=== PATIENT | female | born 2000 | race Caucasian/White ===

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

== ENCOUNTER 2023-06-27 09:29 | Outpatient (CLI) | payer MEDICAID | END 2023-06-27 23:59 | disposition home or self-care (01) | LOC: RAD 09:29 | PROVIDERS: ATTEND Nurse Practitioner Family | DX: G40.909 Epilepsy, unspecified, not intractable, without status epilepticus (principal) | CPT/HCPCS: 95816 ==